=== PATIENT | male | born 1965 | race Caucasian/White ===

== ENCOUNTER 2024-09-17 14:17 | Emergency (ER) | payer MEDICARE, MEDICAID, SELFPAY ==
--- NOTE | ~2024-09-17 | XR_ITS ---
EXAMINATION: XR CHEST CLINICAL INFORMATION: cough, fever COMPARISON: None available. TECHNIQUE: 2 views of the chest were obtained. FINDINGS: Cardiac and mediastinal and hilar contours are unremarkable. Lungs are clear and well aerated. XR/XR chest 2V IMPRESSION: No acute disease. Electronically signed by: Usman Flood MD 09/17/2024 03:41 PM EDT
--- NOTE | 2024-09-17 14:19 | ECG_ITS ---
Test Reason : CP Blood Pressure : */* mmHG Vent. Rate : 96 BPM Atrial Rate : 96 BPM P-R Int : 150 ms QRS Dur : 98 ms QT Int : 364 ms P-R-T Axes : 1 38 22 degrees QTcB Int : 459 ms Normal sinus rhythm Septal infarct , age undetermined Abnormal ECG When compared with ECG of 14-Aug-2005 22:36, Septal infarct is now Present Referred By: Generic ED Physician Electronically Signed By: ALFREDO JACOBS MD
--- NOTE | 2024-09-17 14:28 | ED.GENADULT ---
HPI - General Adult General Chief complaint: General Medical Stated complaint: chest pain Time Seen by Provider: 09/17/24 14:58 Source: patient Mode of arrival: ambulatory Limitations: no limitations History of Present Illness ED Provider: Dr. Gume Sanders HPI narrative: 58-year-old male with a history of depression, anxiety, insomnia who presents emergency department for evaluation of 2-3 weeks of constant cough which is worse in the last week. The patient states that his cough is productive of thick, yellow phlegm with no blood in the phlegm. Patient states that he has chest pain with coughing. He feels short of breath and has dyspnea on exertion. He states that his symptoms got worse so he came to the emergency department for evaluation. The patient had subjective fevers. He denied chills. He denied nausea, vomiting or diarrhea. He denied myalgias arthralgias. Patient has a greater than 45 pack-year history of smoking and he smokes 1/2-1 pack of cigarettes per day. Related Data Previous Rx's ?Medication ?Instructions ?Recorded albuterol sulfate 90 mcg/actuation 2 puff inhalation Q4-6H PRN 09/17/24 aerosol inhaler shortness of breath or wheezing #8.5 grams cefuroxime axetil 250 mg tablet 250 mg PO Q12H 5 days #10 tabs 09/17/24 doxycycline hyclate 100 mg capsule 100 mg PO BID 5 days #10 caps 09/17/24 Allergies Allergy/AdvReac Type Severity Reaction Status Date / Time carisoprodol [From [facility]] Allergy Unknown UNKNOWN Verified 09/17/24 14:32 Review of Systems Review of Systems: Yes all other systems are reviewed and are negative [facility] Past Medical History [facility] Narrative: Social history: Patient smokes 1/2-1 pack of cigarettes per day for 45 years. He occasionally drinks alcohol. He denies drug use. Social History Social History Alcohol intake: current Alcohol intake frequency: holidays/special occasions only Alcohol type: beer Smoked in Last 30 Days: Yes Use of substances other than those prescribed or required for medical reasons: Yes Substance Use Type: Marijuana Substance Use Frequency: Occasionally Advance Directives: No Advance Directives Information Provided: No Physical Exam ED Vital Signs: Vital Signs - 24 hr 09/17/24 14:29 09/17/24 14:54 06/12/25 15:55 Temperature 98.0 F 98.0 F Pulse Rate 101 H 101 H 77 Respiratory Rate 20 20 12 Blood Pressure 122/82 122/82 Pulse Oximetry 94 94 Oxygen Delivery Method Room Air Room Air BMI result Body Mass Index 32.0 Vital signs revealed an elevated heart rate of 101 otherwise unremarkable Exam: General: Awake, alert in no distress Head: Normocephalic, atraumatic EENT: PERRL, Lids normal, sclera normal, conjunctiva normal, nose normal , ears normal, throat without erythema or exudates Neck: Supple, no adenopathy Lung: breath sounds symmetric, diffuse rhonchi with wheezing at the end of expiration, no rales Chest: symmetric movement, nontender Heart: regular rate and rhythm, normal S1, S2 no murmurs or rubs Abdomen: soft, non-tender, nondistended, normal bowel sounds Back: no vertebral tenderness, no CVAT Extremities: no deformities, moves all extremities symmetrically Neuro: Awake, alert, oriented, normal speech, cranial nerves intact, moves all extremities symmetrically Psych: Pleasant, cooperative Course Course Course Narrative: RME, this is a rapid medical exam performed by Luis Eduardo Erazo please refer to primary provider for complete H&P- 58-year-old male presents for evaluation of cough, chest pain and subjective fevers. Plan for labs, viral swabs, chest x-ray. EKG was ordered on arrival. Medications Administered Discontinued Medications Generic Name Dose Route Start Last Admin Trade Name Freq PRN Reason Stop Dose Admin Cefuroxime Axetil 250 mg 09/17/24 15:22 09/17/24 15:49 Cefuroxime Axetil 250 Mg Tablet PO 09/17/24 15:23 250 mg ONCE ONE Administration Albuterol Sulfate 2.5 mg/ 0 mg 09/17/24 15:55 09/17/24 16:00 Albuterol/Ipratropium 3 ml INHALE 09/17/24 15:56 5 dose ONCE ONE Administration Doxycycline Monohydrate 100 mg 09/17/24 15:22 09/17/24 15:49 Doxycycline Monohydrate 100 Mg Capsule PO 09/17/24 15:23 100 mg ONCE ONE Administration Medical Decision Making Medical Decision Making MDM Narrative: 58-year-old male with a history of depression, anxiety, insomnia who presents emergency department for evaluation of 2-3 weeks of constant cough which is worse in the last week. The patient states that his cough is productive of thick, yellow phlegm with no blood in the phlegm. Patient states that he has chest pain with coughing. He feels short of breath and has dyspnea on exertion. He states that his symptoms got worse so he came to the emergency department for evaluation. The patient had subjective fevers. He denied chills. He denied nausea, vomiting or diarrhea. He denied myalgias arthralgias. Vital signs revealed elevated heart rate otherwise unremarkable. Lung exam revealed diffuse rhonchi with wheezing at the end of expiration otherwise unremarkable. Differential diagnosis: ?Includes but is not limited to pneumonia, bronchitis, viral syndrome, COVID-19, influenza, RSV Course: 15:31 My independent interpretation patient's laboratory evaluation is as follows: WBC elevated 13,700. CMP was normal. Troponin was below detectable limits. BNP was below detectable limits. COVID-19, RSV and influenza were negative. Patient was given albuterol 5 mg and ipratropium 0.5 mg nebulized treatment with some improvement of his shortness of breath in his cough. Chest x-ray revealed no evidence of congestive heart failure or pneumonia which is reassuring. Patient's presentation is consistent with bronchitis. The patient was started on cefuroxime 250 mg q.12 hours x5 days and doxycycline 100 mg q.12 hours x5 days. He is given his 1st dose of these medications here in the emergency department. Patient was advised to stop smoking cigarettes. He was given printed and verbal instructions and discharged home. Admission/Observation Consideration of admission/observation: Escalation of care including admission/observation considered (Yes) Lab Data MDM Lab Attestation statement: I reviewed the patient's lab results. 09/17/24 14:41 09/17/24 14:41 Labs: Lab Results 09/17/24 Range/Units 14:41 WBC 13.7 H (4.8-10.8) X10*3/uL RBC 4.54 L (4.60-5.80) X10*6/uL Hgb 14.1 (14.0-18.0) g/dl Hct 40.0 L (42.0-52.0) % MCV 88.1 (80.0-98.0) fL MCH 31.1 (27.0-33.0) pg MCHC 35.3 (31.0-36.0) g/dl RDW 14.6 (11.0-16.0) % Plt Count 248 (160-400) X10*3/uL MPV 9.1 L (9.4-12.4) fL Immature Gran % (Auto) 0.3 (0.0-0.4) % Neut % (Auto) 63.0 (45-73) % Lymph % (Auto) 26.3 (20-40) % Jones % (Auto) 7.0 (2-11) % Eos % (Auto) 2.8 (0-4) % Baso % (Auto) 0.6 (0-2) % Lymph # (Auto) 3.6 (1.2-4.9) X10*3/uL Jones # (Auto) 1.0 (0.1-1.2) X10*3/uL Eos # (Auto) 0.4 (0.0-0.4) X10*3/uL Baso # (Auto) 0.1 (0.0-0.2) X10*3/uL Abs Immat Gran (auto) 0.04 H (0.00-0.03) X10*3/uL Absolute Neuts (auto) 8.7 H (2.0-8.3) x10*3/uL Absolute Nucleated RBC 0.000 (0.0-0.012) X10*3/uL Nucleated RBC % (auto) 0.0 (0.0-0.2) /100WBC Sodium 142 (135-145) mmol/L Potassium 3.8 (3.3-5.1) mmol/L Chloride 108 (96-108) mmol/L Carbon Dioxide 28 (22-29) mmol/L Anion Gap 10 L (12-20) BUN 11 (9-16) mg/dL Creatinine 0.93 (0.5-1.4) mg/dL Estim Creat Clear Calc 106.7 Estimated GFR > 60 Random Glucose 104 (60-115) mg/dL Calcium 10.2 (8.4-10.2) mg/dL Magnesium 2.0 (1.6-2.6) mg/dL Total Bilirubin 0.4 (0.0-1.0) mg/dL AST 26 (5-37) U/L ALT 25 (0-40) U/L Alkaline Phosphatase 109 (39-117) U/L Troponin I High Sens < 2.7 (<3.5-35.0) ng/L B-Natriuretic Peptide < 10 (<100) pg/mL Total Protein 6.8 (6.5-8.0) g/dL Albumin 4.4 (3.5-5.0) g/dL Influenza Type A (PCR) NEGATIVE (Negative) Influenza Type B (PCR) NEGATIVE (Negative) RSV RNA Qual (PCR) NEGATIVE (Negative) SARS-CoV-2 RNA (RT-PCR) NEGATIVE (Negative) Independent Interpretation I performed an independent interpretation of an: EKG Interpretation: My independent interpretation patient's 12 EKG done on 09/17/2024 at 14:19 hours is as follows: Normal sinus rhythm with a rate of 96, normal NM interval, QRS duration QTC interval, no ST segment elevation, no ST segment depression, no significant T-wave abnormalities, RR prime in V1 through V2. Compared to an EKG dated 08/14/2005, RR prime in V1 and V2 are new. My independent interpretation of the patient's chest x-ray is as follows: No acute disease Radiology Impression Discussion of test interpretation with radiology: I have reviewed the radiologist's reading. Radiologist Impression: XR chest 2V IMPRESSION: No acute disease. Electronically signed by: Usman Flood MD 09/17/2024 03:41 PM EDT RP Independent Historian Clinical information obtained from an independent historian. History obtained from or confirmed by: Spouse Chronic Conditions Patient?s care impacted by: Other (Depression, anxiety, tobacco use disorder) Discharge Plan Discharge Clinical Impression: Bronchitis with bronchospasm Patient Disposition: Home, Self-Care Instructions: Acute Bronchitis (ED) Additional Instructions: Your blood work revealed an elevated white blood cell count otherwise unremarkable. Your chest x-ray revealed no evidence of pneumonia. Your symptoms are consistent with an infection of your breathing tubes (bronchitis). I am starting you on 2 antibiotics Take cefuroxime 250 mg, 1 pill every 12 hours for 5 days. Take doxycycline 100 mg, 1 pill every 12 hours for 5 days. Use the albuterol inhaler 2 puffs every 4 hours for the next 3-4 days, this should improve your shortness of breath and hopefully help with your cough as well. Take Tylenol 500 mg pills, 2 pills every 6 hours as needed for pain or fever. You need to stop smoking cigarettes. Follow-up with your doctor in 2 days. Please return to the emergency department if your symptoms get worse or if you develop any symptoms that are concerning to you. Prescriptions: New doxycycline hyclate 100 mg capsule 100 mg PO BID 5 Days Qty: 10 0RF albuterol sulfate 90 mcg/actuation HFA aerosol inhaler 2 puff inhalation Q4-6H PRN (Reason: shortness of breath or wheezing) Qty: 8.5 0RF cefuroxime axetil 250 mg tablet 250 mg PO Q12H 5 Days Qty: 10 0RF Print Language: Norwegian
[2024-09-17 14:29] VITALS: BP 122/82; PULSE 101; RESP 20; TEMP 36.7; O2SAT 94; BMI 32.0
[2024-09-17 14:45] LABS: MANUAL DIFF FLAG NO
[2024-09-17 14:48] LABS: Basophils Absolute Auto 0.1 X10*3/uL (0.0-0.2); Basophils Percent Auto 0.6 % (0-2); Eosinophils Absolute Auto 0.4 X10*3/uL (0.0-0.4); Eosinophils Percent Auto 2.8 % (0-4); Hemoglobin 14.1 g/dl (14.0-18.0); Imm Gran Abs Auto 0.04 X10*3/uL (0.00-0.03); Imm Gran Pct Auto 0.3 % (0.0-0.4); Lymphocytes Absolute Auto 3.6 X10*3/uL (1.2-4.9); Lymphocytes Percent Auto 26.3 % (20-40); Mean Corpuscular HGB Conc 35.3 g/dl (31.0-36.0); Mean Corpuscular Hemoglobin 31.1 pg (27.0-33.0); Mean Corpuscular Volume 88.1 fL (80.0-98.0); Mean Platelet Volume 9.1 fL (9.4-12.4); Neutrophils Absolute Auto 8.7 x10*3/uL (2.0-8.3); Platelet Count 248 X10*3/uL (160-400); Red Blood Count 4.54 X10*6/uL (4.60-5.80); Red Cell Distribution Width 14.6 % (11.0-16.0); White Blood Count 13.7 X10*3/uL (4.8-10.8)
[2024-09-17 14:54] VITALS: BP 122/82; PULSE 101; RESP 20; TEMP 36.7; O2SAT 94
--- NOTE | 2024-09-17 14:59 | PC.NURSE ---
Patient A&O x 3. Patient presents to ED c/o SOB. Patient states I havent been feeling well and coughing for the last week, the last three days thick yellow sputum has been produced . O2 95% RA Patient tachypnic 22 RR all other VSS and up to date Patient c/o back pain rated 4/10 non radiating. Patient c/o of subjective fevers over the last few days. Patient has been using OTC medications at home with no relief. Plan of care on going
[2024-09-17 15:01] LABS: Alanine Aminotransferase 25 U/L (0-40); Albumin Level 4.4 g/dL (3.5-5.0); Alkaline Phosphatase 109 U/L (39-117); Anion Gap 10 (12-20); Aspartate Amino Transferase 26 U/L (5-37); Bilirubin Total 0.4 mg/dL (0.0-1.0); Blood Urea Nitrogen 11 mg/dL (9-16); Calcium 10.2 mg/dL (8.4-10.2); Carbon Dioxide 28 mmol/L (22-29); Chloride 108 mmol/L (96-108); Creatinine Clr Calc Pharmacy 106.7; Estimated Glomerular Filt Rate > 60; Glucose Random 104 mg/dL (60-115); Potassium 3.8 mmol/L (3.3-5.1); Sodium 142 mmol/L (135-145); Total Protein 6.8 g/dL (6.5-8.0)
[2024-09-17 15:07] LABS: B Type Natriuretic Peptide < 10 pg/mL (<100)
[2024-09-17 15:09] LABS: Troponin-I High Sensitivity < 2.7 ng/L (<3.5-35.0)
[2024-09-17 15:23] LABS: Influenza A PCR NEGATIVE (Negative); Influenza B PCR NEGATIVE (Negative); Resp Syncy Virus RNA Qual PCR NEGATIVE (Negative); SARS COV2 PCR INHOUSE NEGATIVE (Negative)
[2024-09-17] MEDS: Doxycycline Monohydrate 100 MG CAPSULE PO (15:49)
[2024-09-17] MEDS: cefuroxime axetiL 250 MG TABLET PO (15:49)
--- NOTE | 2024-09-17 15:50 | PC.NURSE ---
CXR performed, results unremarkable
[2024-09-17 15:55] VITALS: PULSE 77; RESP 12; O2SAT 95
[2024-09-17] MEDS: Albuterol Sulfate 2.5 MG, Albuterol/Iprat 2.5/0.5MG 3 ML 3 ML INHALE (16:00)
--- OUTSIDE RECORDS SUMMARY | 2024-09-17 18:02 | XMS_ITS | Clinical Summary ---
Author Organization [employer] Address [address] [place] [address] [address] [place] [address] Care Team Providers Care Operating Room Scheduler Name Role Phone Unavailable Primary Care Provider Unavailabl e Social History Tobacco Use Types Packs/Day Years Used Date Smoking Tobacco: Never Assessed Sex and Gender Information Value Date Recorded Sex Assigned at Male 02/05/2022 10:15 AM EDT Legal Sex Male 10:15 AM EDT Gender Identity Male 02/05/2022 10:15 AM EDT Sexual Orientation Choose not to disclose 2021 10:15 AM EDT Plan of Treatment Health Maintenance Due Date Last Done Comments CT Colonography 1963 Colonoscopy 1963 Colorectal Cancer Screening 1963 Depression Screening 1963 FIT DNA/Cologuard 1963 FIT 1963 FOBT 1963 Lipid Panel 1963 Sigmoidoscopy 1963 Disability Screening 1963 Alcohol/Substance Use Screening 1975 Tobacco Screening 1975 IPV Vaccines (2 of 3 - Adult catch-up series) 10/02/2013 09/04/2013 Zoster Vaccines (1 of 2) 11/08/2013 Pneumococcal Vaccine: 50+ Years (2 of 2 - PCV) 04/11/2019 04/11/2018, 05/31/2017, 08/07/2011, Additional history exists DTaP/Tdap/Td Vaccines (5 - Td or Tdap) 09/05/2023 09/04/2013, 06/05/2013, 08/07/2011, Additional history exists COVID-19 Vaccine (3 - season) 2023 08/30/2020, 08/03/2020 Influenza Vaccine (Season Ended) 2024 02/02/2022, 04/19/2021, 01/22/2019, Additional history exists RSV Patients and Patients Aged 60 years or older (1 - 1-dose 75+ series) 11/08/2038 HIB Vaccines Aged Out 09/04/2013 No longer eligi ble based on patient's age to complete this topic Meningococcal Vaccine Aged Out 09/04/2013, 014 No longer eligible based on patient's age to complete this topic HPV Vaccines Aged Out No longer eligi ble based on patient's age to complete this topic Hepatitis A Vaccines Aged Out No long er eligible based on patient's age to complete this topic Hepatitis B Vaccines Aged Out No long er eligible based on patient's age to complete this topic Meningococcal B Vaccine Aged Out No l onger eligible based on patient's age to complete this topic RSV under 20 months Aged Out No longe r eligible based on patient's age to complete this topic Rotavirus Vaccines Aged Out No longer eligible based on patient's age to complete this topic
[2024-09-17 18:31] VITALS: BP 131/85; PULSE 73; RESP 11; TEMP 36.8; O2SAT 93
== END 2024-09-17 18:44 | disposition home or self-care (01) ==
PROVIDERS: Physician Assistant; Emergency Provider Emergency Medicine Emergency Medical Services
DX: J40 Bronchitis, not specified as acute or chronic (principal); R07.89 Other chest pain; G47.00 Insomnia, unspecified; F33.1 Major depressive disorder, recurrent, moderate; R05.9 Cough, unspecified; R06.02 Shortness of breath; Z03.818 Encounter for observation for suspected exposure to other biological agents ruled out; Z87.891 Personal history of nicotine dependence
CPT/HCPCS: 0241U; 36415; 71046; 80053; 83735; 83880; 84484; 85025; 93005; 94640; 99284; 99285

== ENCOUNTER → 2024-09-17 14:19 | Outpatient (BNV) | payer MEDICARE, MEDICAID, SELFPAY | PROVIDERS: Emergency Provider Emergency Medicine Emergency Medical Services; Visit Provider Internal Medicine Cardiovascular Disease | DX: R94.31 Abnormal electrocardiogram [ECG] [EKG] (principal); R07.9 Chest pain, unspecified | CPT/HCPCS: 93010 ==

== ENCOUNTER → 2024-09-17 14:29 | Outpatient (BNV) | payer MEDICARE, MEDICAID, SELFPAY | PROVIDERS: Emergency Provider Emergency Medicine Emergency Medical Services; Visit Provider Radiology Diagnostic Radiology | DX: R05.9 Cough, unspecified (principal); R50.9 Fever, unspecified | CPT/HCPCS: 71046 ==

== ENCOUNTER 2024-10-26 13:17 | Emergency (ER) | payer MEDICARE, MEDICAID, SELFPAY ==
--- NOTE | ~2024-10-26 | XR_ITS ---
EXAMINATION: XR CHEST CLINICAL INFORMATION: chest pain COMPARISON: 09/17/2024 TECHNIQUE: 2 views of the chest were obtained. FINDINGS: The cardiac, hilar, and mediastinal contours are normal. The lungs are mildly hyperaerated, however clear bilaterally. There is no pneumothorax or pleural effusion. There is no focal osseous or soft tissue abnormality. XR/XR chest 2V IMPRESSION: Findings suggesting COPD. No active superimposed disease. Electronically signed by: Erick Austin MD 10/26/2024 01:55 PM EDT
--- NOTE | 2024-10-26 13:19 | ECG_ITS ---
Test Reason : cp Blood Pressure : */* mmHG Vent. Rate : 79 BPM Atrial Rate : 79 BPM P-R Int : 164 ms QRS Dur : 98 ms QT Int : 408 ms P-R-T Axes : -10 39 26 degrees QTcB Int : 467 ms Normal sinus rhythm Cannot rule out Anterior infarct (cited on or before 17-Sep-2024) Abnormal ECG When compared with ECG of 17-Sep-2024 14:19, Questionable change in initial forces of Septal leads Referred By: January Llamas Electronically Signed By: Deacon Perez
--- NOTE | 2024-10-26 13:31 | ED_ITS ---
HPI - Chest Pain General Chief Complaint: Chest Pain Stated Complaint: CP Time Seen by Provider: 10/26/24 14:33 Source: patient Mode of arrival: ambulatory Limitations: no limitations History of Present Illness HPI narrative: This is a 58 years old the patient with history of anxiety major depression prior psychiatric hospitalization with overdose presented to the emergency department with a chief complaint of chest pain he states that he has been under lot of stress this afternoon experienced chest pain radiated to the jaw. Denies exertional symptoms. He has no prior history of coronary artery disease he does smoke a no diabetes or high blood pressure MD complaint: chest pain Onset (ago): hour(s) (2) Timing of current episode: episodic Onset: during rest Pain location: substernal Pain radiation: jaw/teeth Severity: mild Relieving factors: nothing Exacerbating factors: nothing Context: recent illness Risk Factors Coronary artery disease risk factors: smoking history Thoracic aortic dissection risk factors: none Related Data Previous Rx's ?Medication ?Instructions ?Recorded albuterol sulfate 90 mcg/actuation 2 puff inhalation Q 4-6H PRN 09/17/24 aerosol inhaler shortness of breath or wheez ing #8.5 grams cefuroxime axetil 250 mg tablet 250 mg PO Q12H 5 days #10 tabs 09/17/24 doxycycline hyclate 100 mg capsule 100 mg PO BID 5 day s #10 caps 09/17/24 Allergies Allergy/AdvReac Type Severity Reaction Status Date / Time carisoprodol (From [facility]) Allergy Unknown UNKNOWN Verified 10/26/24 13:33 Review of Systems 2 Cardiovascular: Cardiovascular: Reports no additional cardiovascular complaints and Denies dyspnea Respiratory: Respiratory: Denies cough and Denies dyspnea Psychiatric: Psychiatric: Reports anxiety PMFSH Social History Social History Alcohol intake: current Alcohol intake frequency: holidays/special occasions only Alcohol type: beer Substance Use Type: Marijuana Advance Directives: No Advance Directives Information Provided: Yes Physical Exam 2 Exam: Exam: No acute distress Vital Signs: Vital Signs: Last Vital Signs Temp 98.1 F 10/26/24 15:10 Pulse 62 10/26/24 15:10 Resp 18 10/26/24 15:10 BP 143/97 H 10/26/24 15:10 Pulse Ox 96 10/26/24 15:10 O2 Del Method Room Air 10/26/24 15:10 BMI result Body Mass Index 33.9 Const: General: cooperative and comfortable Nutritional Appearance: average body habitus Orientation/consciousness: patient oriented x3 Limitations: n o limitations HEENT: Head: Yes normal to inspection General nose exam: Normal external nose present Face and sinus: Yes normal facial exam Neck: Neck: Yes normal visual inspection Chest: Chest palpation & inspection: normal inspection of the chest Resp: Effort & Inspection: normal respiratory effort Auscultation: clear to auscultation bilaterally Cardio: Jugular venous distension: no JVD Rate: regular rate Rhythm: r egular rhythm GI: Inspection: Yes normal to inspection Palpation (GI): Soft to palpation Skin: General skin exam: no rashes or lesions noted and elasticity normal Neuro: General: patient oriented x3 Course Course Course Narrative: This is an RME performed by Fareed Llamas CNP: Additional HPI, ROS, PE not included below will be deferred to primary provider. Patient is a 58-year-old male pmhx of depression, anxiety, agoraphobia, tobacco use who presents emergency department for evaluation. Reports proximally abdomen prior to arrival ?I thought he had indigestion? he took 4 Tums without relief. But then began having midsternal chest pain, jaw pain, left arm pain, SOB like i can't catch my breath . States that pain has improved since its onset but still present. Endorses increased stressors recently. Denies cough, dizziness, vision changes, headache, abdominal pain. Plan: Serum labs, ECG, CXR, viral serologies Reevaluation(s) Reevaluation #1: Patient is chest pain-free refused 2nd troponin he is signing ascending advice Time: 16:02 Medical Decision Making Medical Decision Making [facility] Narrative: Patient presented with chest pain we will obtain EKG high sensitive troponin chest x-ray 16:00 patient is refusing 2nd troponin sign against medical advice understands the risks Differential Diagnosis Differential Diagnoses: The differential diagnosis associated with the presentation includes ACS/anxiety/musculoskeletal pain Admission/Observation Consideration of admission/observation: Escalation of care including admission/observation considered Lab Data [facility] Lab Attestation statement: I reviewed the patient's lab results. 10/26/24 13:31 10/26/24 13:31 Labs: Lab Results 10/26/24 Range/Units 13:31 WBC 11.5 H (4.8-10.8) X10*3/uL RBC 4.49 L (4.60-5.80) X10*6/uL Hgb 14.1 (14.0-18.0) g/dl Hct 40.2 L (42.0-52.0) % MCV 89.5 (80.0-98.0) fL MCH 31.4 (27.0-33.0) pg MCHC 35.1 (31.0-36.0) g/dl RDW 15.1 (11.0-16.0) % Plt Count 288 (160-400) X10*3/uL MPV 9.2 L (9.4-12.4) fL Immature Gran % (Auto) 0.3 (0.0-0.4) % Neut % (Auto) 55.0 (45-73) % Lymph % (Auto) 34.7 (20-40) % [place] % (Auto) 7.6 (2-11) % Eos % (Auto) 1.4 (0-4) % Baso % (Auto) 1.0 (0-2) % Lymph # (Auto) 4.0 (1.2-4.9) X10*3/uL [place] # (Auto) 0.9 (0.1-1.2) X10*3/uL Eos # (Auto) 0.2 (0.0-0.4) X10*3/uL Baso # (Auto) 0.1 (0.0-0.2) X10*3/uL Abs Immat Gran (auto) 0.04 H (0.00-0.03) X10*3/uL Absolute Neuts (auto) 6.3 (2.0-8.3) x10*3/uL Absolute Nucleated RBC 0.000 (0.0-0.012) X10*3/uL Nucleated RBC % (auto) 0.0 (0.0-0.2) /100WBC Sodium 143 (135-145) mmol/L Potassium 4.1 (3.3-5.1) mmol/L Chloride 110 H (96-108) mmol/L Carbon Dioxide 27 (22-29) mmol/L Anion Gap 10 L (12-20) BUN 11 (9-16) mg/dL Creatinine 0.87 (0.5-1.4) mg/dL Estim Creat Clear Calc 117.3 Estimated GFR > 60 Random Glucose 102 (60-115) mg/dL Calcium 9.9 (8.4-10.2) mg/dL Magnesium 2.0 (1.6-2.6) mg/dL Total Bilirubin 0.4 (0.0-1.0) mg/dL AST 28 (5-37) U/L ALT 29 (0-40) U/L Alkaline Phosphatase 89 (39-117) U/L Troponin I High Sens < 2.7 (<3.5-35.0) ng/L B-Natriuretic Peptide 11 (<100) pg/mL Total Protein 7.4 (6.5-8.0) g/dL Albumin 4.5 (3.5-5.0) g/dL Lipase 36 (8-78) U/L Influenza Type A (PCR) NEGATIVE (Negative) Influenza Type B (PCR) NEGATIVE (Negative) RSV RNA Qual (PCR) NEGATIVE (Negative) SARS-CoV-2 RNA (RT-PCR) NEGATIVE (Negative) Independent Interpretation I performed an independent interpretation of an: EKG Interpretation: EKG was reviewed interpreted by me as sinus rhythm [address]-T changes Discharge Plan Discharge Clinical Impression: Chest pain Qualifiers: Chest pain type: unspecified Qualified Code(s): R07.9 - Chest pain, unspecified Patient Disposition: Left Against Medical Advice Additional Instructions: You . signed against medical advice you welcome to come back to the emergency room any time if you worse, please follow-up with your primary care physician Prescriptions: No Action doxycycline hyclate 100 mg capsule 100 mg PO BID 5 Days Qty: 10 0RF albuterol sulfate 90 mcg/actuation HFA aerosol inhaler 2 puff inhalation Q4-6H PRN (Reason: shortness of breath or wheezing) Qty: 8.5 0RF cefuroxime axetil 250 mg tablet 250 mg PO Q12H 5 Days Qty: 10 0RF Print Language: Kazakh
[2024-10-26 13:32] VITALS: BP 157/100; PULSE 78; RESP 18; TEMP 36.6; O2SAT 96; BMI 33.9
[2024-10-26 13:38] LABS: MANUAL DIFF FLAG NO
[2024-10-26 13:41] LABS: Hematocrit 40.2 % (42.0-52.0); Hemoglobin 14.1 g/dl (14.0-18.0); Imm Gran Abs Auto 0.04 X10*3/uL (0.00-0.03); Imm Gran Pct Auto 0.3 % (0.0-0.4); Lymphocytes Absolute Auto 4.0 X10*3/uL (1.2-4.9); Mean Corpuscular HGB Conc 35.1 g/dl (31.0-36.0); Mean Corpuscular Hemoglobin 31.4 pg (27.0-33.0); Mean Corpuscular Volume 89.5 fL (80.0-98.0); NRBC Abs Auto 0.000 X10*3/uL (0.0-0.012); NRBC Pct Auto 0.0 /100WBC (0.0-0.2); Platelet Count 288 X10*3/uL (160-400); Red Blood Count 4.49 X10*6/uL (4.60-5.80); White Blood Count 11.5 X10*3/uL (4.8-10.8)
[2024-10-26 13:57] LABS: Alanine Aminotransferase 29 U/L (0-40); Albumin Level 4.5 g/dL (3.5-5.0); Alkaline Phosphatase 89 U/L (39-117); Anion Gap 10 (12-20); Aspartate Amino Transferase 28 U/L (5-37); Blood Urea Nitrogen 11 mg/dL (9-16); Calcium 9.9 mg/dL (8.4-10.2); Carbon Dioxide 27 mmol/L (22-29); Chloride 110 mmol/L (96-108); Creatinine Clr Calc Pharmacy 117.3; Estimated Glomerular Filt Rate > 60; Lipase 36 U/L (8-78); Magnesium 2.0 mg/dL (1.6-2.6); Potassium 4.1 mmol/L (3.3-5.1); Sodium 143 mmol/L (135-145); Total Protein 7.4 g/dL (6.5-8.0)
[2024-10-26 14:02] LABS: B Type Natriuretic Peptide 11 pg/mL (<100)
[2024-10-26 14:10] LABS: Troponin-I High Sensitivity < 2.7 ng/L (<3.5-35.0)
[2024-10-26 14:31] LABS: Resp Syncy Virus RNA Qual PCR NEGATIVE (Negative); SARS COV2 PCR INHOUSE NEGATIVE (Negative)
--- NOTE | 2024-10-26 14:42 | ED.CHESTPAIN ---
HPI - Chest Pain General Chief Complaint: Chest Pain Stated Complaint: CP Time Seen by Provider: 10/26/24 14:33 Related Data Previous Rx's ?Medication ?Instructions ?Recorded albuterol sulfate 90 mcg/actuation 2 puff inhalation Q4-6H PRN 09/17/24 aerosol inhaler shortness of breath or wheezing #8.5 grams cefuroxime axetil 250 mg tablet 250 mg PO Q12H 5 days #10 tabs 09/17/24 doxycycline hyclate 100 mg capsule 100 mg PO BID 5 days #10 caps 09/17/24 Allergies Allergy/AdvReac Type Severity Reaction Status Date / Time carisoprodol (From [employer]) Allergy Unknown UNKNOWN Verified 10/26/24 13:33 [facility] Social History Social History Alcohol intake: current Alcohol intake frequency: holidays/special occasions only Alcohol type: beer Substance Use Type: Marijuana Advance Directives: No Advance Directives Information Provided: Yes Physical Exam Vital Signs: Vital Signs: Last Vital Signs Temp 98 F 10/26/24 13:32 Pulse 78 10/26/24 13:32 Resp 18 10/26/24 13:32 BP 157/100 H 10/26/24 13:32 Pulse Ox 96 10/26/24 13:32 O2 Del Method Room Air 10/26/24 13:32 BMI result Body Mass Index 33.9 Medical Decision Making Lab Data 10/26/24 13:31 10/26/24 13:31 Labs: Lab Results 10/26/24 Range/Units 13:31 WBC 11.5 H (4.8-10.8) X10*3/uL RBC 4.49 L (4.60-5.80) X10*6/uL Hgb 14.1 (14.0-18.0) g/dl Hct 40.2 L (42.0-52.0) % MCV 89.5 (80.0-98.0) fL MCH 31.4 (27.0-33.0) pg MCHC 35.1 (31.0-36.0) g/dl RDW 15.1 (11.0-16.0) % Plt Count 288 (160-400) X10*3/uL MPV 9.2 L (9.4-12.4) fL Immature Gran % (Auto) 0.3 (0.0-0.4) % Neut % (Auto) 55.0 (45-73) % Lymph % (Auto) 34.7 (20-40) % [place] % (Auto) 7.6 (2-11) % Eos % (Auto) 1.4 (0-4) % Baso % (Auto) 1.0 (0-2) % Lymph # (Auto) 4.0 (1.2-4.9) X10*3/uL [place] # (Auto) 0.9 (0.1-1.2) X10*3/uL Eos # (Auto) 0.2 (0.0-0.4) X10*3/uL Baso # (Auto) 0.1 (0.0-0.2) X10*3/uL Abs Immat Gran (auto) 0.04 H (0.00-0.03) X10*3/uL Absolute Neuts (auto) 6.3 (2.0-8.3) x10*3/uL Absolute Nucleated RBC 0.000 (0.0-0.012) X10*3/uL Nucleated RBC % (auto) 0.0 (0.0-0.2) /100WBC Sodium 143 (135-145) mmol/L Potassium 4.1 (3.3-5.1) mmol/L Chloride 110 H (96-108) mmol/L Carbon Dioxide 27 (22-29) mmol/L Anion Gap 10 L (12-20) BUN 11 (9-16) mg/dL Creatinine 0.87 (0.5-1.4) mg/dL Estim Creat Clear Calc 117.3 Estimated GFR > 60 Random Glucose 102 (60-115) mg/dL Calcium 9.9 (8.4-10.2) mg/dL Magnesium 2.0 (1.6-2.6) mg/dL Total Bilirubin 0.4 (0.0-1.0) mg/dL AST 28 (5-37) U/L ALT 29 (0-40) U/L Alkaline Phosphatase 89 (39-117) U/L Troponin I High Sens < 2.7 (<3.5-35.0) ng/L B-Natriuretic Peptide 11 (<100) pg/mL Total Protein 7.4 (6.5-8.0) g/dL Albumin 4.5 (3.5-5.0) g/dL Lipase 36 (8-78) U/L Influenza Type A (PCR) NEGATIVE (Negative) Influenza Type B (PCR) NEGATIVE (Negative) RSV RNA Qual (PCR) NEGATIVE (Negative) SARS-CoV-2 RNA (RT-PCR) NEGATIVE (Negative) Discharge Plan Discharge Prescriptions: No Action doxycycline hyclate 100 mg capsule 100 mg PO BID 5 Days Qty: 10 0RF albuterol sulfate 90 mcg/actuation HFA aerosol inhaler 2 puff inhalation Q4-6H PRN (Reason: shortness of breath or wheezing) Qty: 8.5 0RF cefuroxime axetil 250 mg tablet 250 mg PO Q12H 5 Days Qty: 10 0RF Print Language: Portuguese
--- NOTE | 2024-10-26 14:47 | ED.CHESTPAIN ---
HPI - Chest Pain General Chief Complaint: Chest Pain Stated Complaint: CP Time Seen by Provider: 10/26/24 14:33 Related Data Previous Rx's ?Medication ?Instructions ?Recorded albuterol sulfate 90 mcg/actuation 2 puff inhalation Q4-6H PRN 09/17/24 aerosol inhaler shortness of breath or wheezing #8.5 grams cefuroxime axetil 250 mg tablet 250 mg PO Q12H 5 days #10 tabs 09/17/24 doxycycline hyclate 100 mg capsule 100 mg PO BID 5 days #10 caps 09/17/24 Allergies Allergy/AdvReac Type Severity Reaction Status Date / Time carisoprodol (From [employer] Experience) Allergy Unknown UNKNOWN Verified 10/26/24 13:33 [facility] Social History Social History Alcohol intake: current Alcohol intake frequency: holidays/special occasions only Alcohol type: beer Substance Use Type: Marijuana Advance Directives: No Advance Directives Information Provided: Yes Physical Exam Vital Signs: Vital Signs: Last Vital Signs Temp 98.1 F 10/26/24 15:10 Pulse 62 10/26/24 15:10 Resp 18 10/26/24 15:10 BP 143/97 H 10/26/24 15:10 Pulse Ox 96 10/26/24 15:10 O2 Del Method Room Air 10/26/24 15:10 BMI result Body Mass Index 33.9 Course Reevaluation(s) Reevaluation #1: Chest pain-free now initial troponin negative, patient is refusing the 2nd troponin, he has sign against medical advice Time: 16:00 Medical Decision Making Medical Decision Making [facility] Narrative: Patient presented with chest pain Lab Data 10/26/24 13:31 10/26/24 13:31 Labs: Lab Results 10/26/24 Range/Units 13:31 WBC 11.5 H (4.8-10.8) X10*3/uL RBC 4.49 L (4.60-5.80) X10*6/uL Hgb 14.1 (14.0-18.0) g/dl Hct 40.2 L (42.0-52.0) % MCV 89.5 (80.0-98.0) fL MCH 31.4 (27.0-33.0) pg MCHC 35.1 (31.0-36.0) g/dl RDW 15.1 (11.0-16.0) % Plt Count 288 (160-400) X10*3/uL MPV 9.2 L (9.4-12.4) fL Immature Gran % (Auto) 0.3 (0.0-0.4) % Neut % (Auto) 55.0 (45-73) % Lymph % (Auto) 34.7 (20-40) % [place] % (Auto) 7.6 (2-11) % Eos % (Auto) 1.4 (0-4) % Baso % (Auto) 1.0 (0-2) % Lymph # (Auto) 4.0 (1.2-4.9) X10*3/uL [place] # (Auto) 0.9 (0.1-1.2) X10*3/uL Eos # (Auto) 0.2 (0.0-0.4) X10*3/uL Baso # (Auto) 0.1 (0.0-0.2) X10*3/uL Abs Immat Gran (auto) 0.04 H (0.00-0.03) X10*3/uL Absolute Neuts (auto) 6.3 (2.0-8.3) x10*3/uL Absolute Nucleated RBC 0.000 (0.0-0.012) X10*3/uL Nucleated RBC % (auto) 0.0 (0.0-0.2) /100WBC Sodium 143 (135-145) mmol/L Potassium 4.1 (3.3-5.1) mmol/L Chloride 110 H (96-108) mmol/L Carbon Dioxide 27 (22-29) mmol/L Anion Gap 10 L (12-20) BUN 11 (9-16) mg/dL Creatinine 0.87 (0.5-1.4) mg/dL Estim Creat Clear Calc 117.3 Estimated GFR > 60 Random Glucose 102 (60-115) mg/dL Calcium 9.9 (8.4-10.2) mg/dL Magnesium 2.0 (1.6-2.6) mg/dL Total Bilirubin 0.4 (0.0-1.0) mg/dL AST 28 (5-37) U/L ALT 29 (0-40) U/L Alkaline Phosphatase 89 (39-117) U/L Troponin I High Sens < 2.7 (<3.5-35.0) ng/L B-Natriuretic Peptide 11 (<100) pg/mL Total Protein 7.4 (6.5-8.0) g/dL Albumin 4.5 (3.5-5.0) g/dL Lipase 36 (8-78) U/L Influenza Type A (PCR) NEGATIVE (Negative) Influenza Type B (PCR) NEGATIVE (Negative) RSV RNA Qual (PCR) NEGATIVE (Negative) SARS-CoV-2 RNA (RT-PCR) NEGATIVE (Negative) Discharge Plan Discharge Clinical Impression: Chest pain Qualifiers: Chest pain type: unspecified Qualified Code(s): R07.9 - Chest pain, unspecified Patient Disposition: Left Against Medical Advice Additional Instructions: You . signed against medical advice you welcome to come back to the emergency room any time if you worse, please follow-up with your primary care physician Prescriptions: No Action doxycycline hyclate 100 mg capsule 100 mg PO BID 5 Days Qty: 10 0RF albuterol sulfate 90 mcg/actuation HFA aerosol inhaler 2 puff inhalation Q4-6H PRN (Reason: shortness of breath or wheezing) Qty: 8.5 0RF cefuroxime axetil 250 mg tablet 250 mg PO Q12H 5 Days Qty: 10 0RF Print Language: Maltese
[2024-10-26 15:10] VITALS: BP 143/97; PULSE 62; PULSE 64; RESP 18; TEMP 36.7; O2SAT 96
--- OUTSIDE RECORDS SUMMARY | 2024-10-26 15:21 | XMS_ITS | Clinical Summary ---
Author Organization [employer] Address [address] [place] [address] [address] [place] [address] Care Team Providers Care Stitcher Standard Machine Name Role Phone Unavailable Primary Care Provider [...] - season) 2023 08/30/2020, 08/03/2020 Influenza Vaccine (#1) 2024 , 04/19/2021, 01/22/2019, Additional history exists RSV Patients [...]
--- OUTSIDE RECORDS SUMMARY | 2024-10-26 15:21 | XMS_ITS | Clinical Summary ---
Author Organization [facility] Address [address] [facility] [address] [place] [address] Phone Care Team Providers Care Extension Service Agent Name Role Phone Oral Hernández MD Unavailable [phone] Montrell Aguilar MD Primary Care Provider + Allergies Active Allergy Reactions Criticality Noted Date Comments Penicillins 09/20/2018 As a child rash Carisoprodol Other (See Comments) 06/08/2017 Pt reports his tongue felt fuzzy nd turned black (childhood) Medications clonazePAM (KLONOPIN) 2 MG tabletIndicatio ns:panic disorder Take 2 mg by mouth 3 (three) times a day as needed. Indications: Panic Disorder Active risperiDONE (RISPERDAL) 2 MG tabletIndicatio ns:depression associated with bipolar disorder Take 2 mg by mouth daily. Indications: bipolar depression Active lamoTRIgine (LAMICTAL XR) 200 mg [id number] :depression associated with bipolar disorder 200 mg daily. Indications: bipolar depression Active PARoxetine (PAXIL) 30 MG tabletIndicatio ns:depression associated with bipolar disorder Take 30 mg by mouth every morning. Indications: bipolar depression Active albuterol (VENTOLIN HFA) 90 mcg/actuation inhaler Inhale 2 puffs into the lungs as needed. 7 Active fluticasone propionate (FLONASE) 50 mcg/actuation nasal spray 100 mcg by Nasal route continuous prn. 9 Active ibuprofen (ADVIL,MOTRIN) 600 MG tablet Take 600 mg by mouth every 6 (six) hours as needed. 9 Active risperiDONE (RISPERDAL) 1 MG tablet Take 1 mg by mouth 2 (two) times a day. Active fluticasone propion-salmete roL (AIRDUO RESPICLICK) 113-14 mcg/actuation inhaler Inhale 1 puff into the lungs 2 (two) times a day. Active brexpiprazole (REXULTI) 2 mg tablet Take 2 mg by mouth daily. Active nicotine (NICODERM CQ) 21 mg/24 hr APPLY TOPICALLY EVERY DAY 28 patch 1 0 Active Active Problems Problem Noted Date Diagnosed Date Chronic left-sided low back pain without sciatic a 08/07/2019 Lumbosacral spondylosis without myelopathy 08/06 Bilateral buttock pain 04/24/2019 Sacroiliitis, not elsewhere classified 0 Depression 06/08/2017 Immunizations Immunization Administration Dates Next Due [id number] 09/04/2013 Influenza Trivalent w/ Preservative IM 1 04/08/2015,01/12/2014,03/10/2010,01/03,02/02/2008,02/18/2006,04/10/2002 Meningococcal MCV4P 09/04/2013 Pneumococcal polysaccharide PPSV23 01/03/2004 Tdap 06/05/2013,04/21/2002 Family History Medical History Relation Comments Cancer Father 2 Relation Status Comments Father 1 Alive Father 2 Social History Tobacco Use Types Packs/Day Years Used Date Smoking Tobacco: Heavy Smoker Smokeless Tobacco: Never Alcohol Use Standard Drinks/Week Comments No 0 (1 standard drink = 0.6 oz pur e alcohol) Education Answer Date Recorded Are you interested in more education? Not on carl e 08/03/2022 Are you concerned about learning? Not on file 08/03/2022 No 08/03/2022 No 08/03/2022 Digital Access Answer Date Recorded No 09/01/2022 No 09/01/2022 Reliable internet access at home? Not on file 09/01/2022 Device with a working camera? Not on file Sex and Gender Information Value Date Recorded Sex Assigned at Male 06/08/2017 11:31 AM EST Legal Sex Male 9:43 PM EDT Gender Identity Male 06/08/2017 11:31 AM EST Sexual Orientation Straight 06/08/2017 11 :31 AM EST Last Filed Vital Signs Vital Sign Reading Time Taken Comments Blood Pressure 139/86 05/19/2019 8:21 AM EST Pulse 73 05/19/2019 8:21 AM EST Temperature 36.7 C (98 F) 12/23/2017 7:54 PM EDT Respiratory Rate 16 06/08/2017 3:16 PM EST Oxygen Saturation 96% 05/19/2019 8:21 AM EST Inhaled Oxygen Concentration - - Weight 124.2 kg (273 lb 12.8 oz) 05/19/2019 8:21 AM EST Height 182 cm (5' 11.65 ) 05/19/2019 8:21 AM EST Body Mass Index 37.49 05/19/2019 8:21 AM EST Plan of Treatment Health Maintenance Due Date Last Done Comments LIPID PANEL 1963 DEPRESSION SCREENING 1975 SMOKING Hx and SMOKELESS TOBACCO SCREENING 11/08/1976 HEPATITIS C SCREENING 11/08/1981 HIV ONE-TIME SCREENING (18-65 YEARS) 11/08/1981 COLOGUARD 11/08/2008 COLONOSCOPY 11/08/2008 COLORECTAL CANCER SCREENING 11/08/2008 FIT TEST 11/08/2008 FOBT 11/08/2008 SIGMOIDOSCOPY 11/08/2008 VIRTUAL COLONOSCOPY 11/08/2008 ZOSTER VACCINES (1 of 2) 11/08/2013 PNEUMOCOCCAL VACCINES (50+ years) (2 of 2 - PCV) 04/11/2019 04/11/2018, 05/31/2017, 08/07/2011, Additional history exists Adult Td,Tdap Booster 06/05/2023 06/05/2013 , 08/07/2011, 04/21/2002, Additional history exists COVID-19 VACCINE (2 - 2023- season) 2023 08/03/2020 RSV VACCINE (1 - 1-dose 75+ series) 11/08/2038 HIB VACCINES Aged Out 09/04/2013, 09/04/2013 No lo nger eligible based on patient's age to complete this topic MENINGOCOCCAL VACCINES (ACWY) Aged Out 09/04/2013 No longer eligible based on patient's age to complete this topic HEPATITIS A VACCINES Aged Out No long er eligible based on patient's age to complete this topic MENINGOCOCCAL VACCINES (B) Aged Out N o longer eligible based on patient's age to complete this topic Medical Devices Not on file Insurance [place] & B [facility] [place] [facility] & B [place] [facility] & [facility] & [facility] PART A & B [facility] MEDICARE PART A & B Care Teams Extension Service Agent Relationship Specialty Start Date End Date Montrell Aguilar MD [address] [place] [id number] PCP - General 04/11/17 Oral Hernández MD [address] [place] [id number] Historical LMR Provider 01/21/17 Additional Source Comments The information contained in this document represents components of the legal health record. It is not the complete legal health record.[facility]
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
--- OUTSIDE RECORDS SUMMARY | 2024-10-26 15:21 | XMS_ITS | Clinical Summary ---
Author Organization [facility] [address] [place] [address] [place] [phone] Phone Care Team Providers Care Manager Of Applications Development Name Role Phone Agnes Kemp MD Primary Care Provider [phone] Allergies Active Allergy Reactions Criticality Noted Date Comments Carisoprodol Other,Rash High 11/30/2005 Other Reaction(s): Rash/Dermatitis Pt reports his tongue felt fuzzy nd turned black (childhood) Penicillins 09/20/2018 As a child rash Medications acetaminophen-c affeine-pyrilam ine (MIDOL COMPLETE) 500-60-15 mg tablet tablet Take 1,000 mg by mouth. 4 Active fluticasone furoate-vilante roL (BREO ELLIPTA) 100-25 mcg/dose inhaler Inhale by mouth. 3 Active atorvastatin (LIPITOR) 20 mg tablet Take 1 tablet (20 mg total) by mouth. 2 Active clonazePAM (KlonoPIN) 1 mg tablet Take 1 tablet (1 mg total) by mouth. 4 Active brexpiprazole (Rexulti) 2 mg tablet Take 1 tablet (2 mg total) by mouth. 4 Active fluticasone propion-salmete roL (AIRDUO RESPICLICK) 113-14 mcg/actuation aerosol powdr breath activated inhaler INHALE 1 PUFF INTO THE LUNGS TWICE DAILY 1 Active fluticasone propionate (FLONASE) 50 mcg/actuation nasal spray Administer 2 sprays into affected nostril(s). 9 Active fluticasone propion-salmete roL (AIRDUO DIGIHALER) 113 mcg-14 mcg/actuation aero powdr breath act w/sensor inhaler Inhale 1 puff by mouth. Active lamoTRIgine (LaMICtal) 100 mg tablet Take 2 tablets (200 mg total) by mouth. 3 Active ibuprofen (ADVIL,MOTRIN) 600 mg tablet Take 1 tablet (600 mg total) by mouth every 6 hours as needed. 9 Active hydrOXYzine HCL (ATARAX) 25 mg tablet Take 1 tablet (25 mg total) by mouth 3 (three) times a day if needed. Active methocarbamoL (ROBAXIN) 500 mg tablet Take 1 tablet (500 mg total) by mouth. 1 Active QUEtiapine (SEROquel) 100 mg tablet Take 1 tablet (100 mg total) by mouth 2 (two) times a day. Active polyethylene glycol-electrol ytes (Nulytely Lemon-Yuhaaviatam) 420 gram solution Take 240 mL by mouth. 3 Active Active Problems Problem Noted Date Diagnosed Date Knee pain 01/08/2024 Requires assistance with activities of daily camila ing (ADL) 01/08/2024 Overview (01/08/2024): Initial Oswestry Disability Index: 62% crippled and [place] Back Pain Disability Scale: 60 on 12/24/2013. 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 thy 01/08/2024 Muscle pain 01/08/2024 Normocytic normochromic anemia 01/08/2024 Obesity with body mass index 30 or greater 01/07 Posttraumatic stress disorder 01/08/2024 Sacroiliac joint pain 01/08/2024 Spasm 01/08/2024 TBI (traumatic brain injury) ([facility] V24, [facility] V28) 01/08/2024 Tobacco dependence syndrome 01/08/2024 Anxiety 09/10/2023 Mild intermittent asthma without complication Cough with hemoptysis 12/09/2020 H/O splenectomy 12/09/2020 Leukocytosis 12/09/2020 Idiopathic thrombocytopenic purpura (ITP) ([facility] [place]24, [facility] V28) 12/09/2020 Chronic left-sided low back pain without sciatic a 08/07/2019 Lung nodule 09/25/2018 Constipation due to opioid therapy 08/17/2015 Postoperative pain 10/27/2013 Presence of unspecified artificial knee joint Multiple fracture 03/06/2011 Panic disorder without agoraphobia 03/14/2006 Calculus of kidney 02/25/2006 Other chest pain 02/25/2006 Allergic rhinitis 11/30/2005 Asthma 11/30/2005 Gastroesophageal reflux disease 11/30/2005 Pure hypercholesterolemia 11/30/2005 Tobacco use disorder 11/30/2005 Immunizations Name Administration Dates Next Due [id number] (Pentacel) 2mo to less than 5yo 09/04/2013 Influenza trivalent, with pr eservative (Fluzone; Afluria) 6mo and older 02/02/2022,04/19/2021,01/22/2019,04/11,05/31/2017,02/07/2016,01/12/2014 ,05/01/2012,03/10/2010,01/03/2009,01/07,02/18/2006,04/10/2002 Meningococcal, Unspecified 09/04/2013 Pneumococcal polysaccharide 23 valent (Pneumovax 23) 2yo and older 04/11/2018,05/31/2017,08/07/2011,01/02 Td, Unspecified 04/21/2002 Tdap Tetanus diptheria acell ular pertussis (Boostrix; Adacel) 7yo and older 06/05/2013,08/07/2011,04/21/2002 Surgical History Surgery Date Site/Laterality Comments OTHER SURGICAL HISTORY 12/11 PROCEDURE: [place] TRANSVESICAL URETROLITHOTOMY TOTAL KNEE ARTHROPLASTY 2012 PROCEDURE: [place] ARTHRP KNE CONDYLE&PLATU MEDIAL&LAT COMPARTMENTS; COMMENT: right ESOPHAGOGASTRODUODENOSCOPY 08/01/15 [facility] PROCEDURE: HI ESOPHAGOGASTRODUODENOSCOPY TRANSORAL DIAGNOSTIC; COMMENT: normal; no Walker's COLONOSCOPY W/ BIOPSIES 08/01/15 [facility] PROCEDURE: HI COLONOSCOPY W/BIOPSY SINGLE/MULTIPLE; COMMENT: small adenoma; poor bowel prep; repeat in 1 year OTHER SURGICAL HISTORY 10/24/16 [facility] PROCEDURE: COLONOSCOPY/REMOVE LESION; COMMENT: 5mm polyp removed but not submitted; hemorrhoids. Repeat under propofol at [facility] in 5 yrs Medical History Medical History Date Comments Esophageal reflux DX:Esophageal reflux; COMMENT: 1994 x's2 Depressive disorder, not els ewhere classified DX:Depressive disorder, not elsewhere classified; COMMENT: TYLENOL OD Pure hypercholesterolemia DX:Pur e hypercholesterolemia Unspecified asthma(493.90) DX:Un specified asthma(493.90) Allergic rhinitis, cause unspecified DX:Allergic rhinitis, cause unspecified Tobacco use disorder DX:Tobacco use disorder Calculus of kidney DX:Calculus o f kidney Convulsions (CMS/HCC V24, CMS/HCC V28) DX:Convulsions; COMMENT: 1994 X 2, 1 IN 2001 Other chest pain DX:Other chest pain 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 03/14/2006 DX:Psychosexual dysfunctio n with inhibited sexual excitement; COMMENT: LOW TEST 182 07/24/04 Panic disorder without agoraphobia 03/14/2006 DX:Panic disorder without agoraphobia; COMMENT: ligia at [facility] Dr brianna stafford at [facility] Obesity, unspecified 03/14/2006 DX:Obesity, unspecified S/P total knee replacement 09/24/2012 DX:S/ P total knee replacement Family History Medical History Relation Name Comments Other cancer Father non-hodgkins ly mphoma Diabetes Maternal Grandfather Lung cancer Mother CABG Paternal Grandfather Heart attack Paternal Grandfather Heart failure Paternal Grandfather Relation Name Status Comments Brother Alive 4 brothers, hea lthy Father Alive Nonhodgkins Maternal Grandfather (Age 30s) D M Maternal Grandmother (Age 80s) d rank and smoked-UTERINE [place] Mother Alive Lung cnacer Paternal Grandfather (Age 93) [place] GB, fell out of bed, [place], CHF Paternal Grandmother Alive healthy Sister Alive 2 sisters, heal thy Son Alive 1 son, age 21 [place] , healthy Social History Tobacco Use Types Packs/Day Years Used Date Smoking Tobacco: Every Day Cigarettes 2 46 Started: 11/08/1978 Smokeless Tobacco: Never Alcohol Use Standard Drinks/Week Comments No 0 (1 standard drink = 0.6 oz pur e alcohol) Sex and Gender Information Value Date Recorded Sex Assigned at Not on file Legal Sex Male 7:09 AM EST Gender Identity Not on file Sexual Orientation Not on file Obstetrics History Last Filed Vital Signs Vital Sign Reading Time Taken Comments Blood Pressure 138/78 09/10/2023 9:00 AM EDT Pulse 80 09/10/2023 9:00 AM EDT Temperature - - Respiratory Rate - - Oxygen Saturation - - Inhaled Oxygen Concentration - - Weight 98.4 kg (217 lb) 09/10/2023 9:00 AM EDT Height 182.9 cm (6') 09/10/2023 9:00 AM EDT Body Mass Index 29.43 09/10/2023 9:00 AM EDT Plan of Treatment Health Maintenance Due Date Last Done Comments Meningococcal B Vaccine (1 of 5 - Increased Risk) 11/08/1973 IPV Vaccines (2 of 3 - Adult catch-up series) 10/02/2013 09/04/2013 Meningococcal ACWY Vaccine (2 - Risk 2-dose series) 10/30/2013 09/04/2013 Zoster Vaccines (1 of 2) 11/08/2013 Pneumococcal Vaccine: 50+ Years (3 of 3 - PCV) 04/11/2019 04/11/2018, 05/31/2017, 08/07/2011, Additional history exists Colorectal Cancer Screening: Colonoscopy 03/17/2022 HIV Screening 03/17/2022 Medicare Annual Wellness Visit 03/17/2022 Social Influencers of Health Screening 03/17/2022 DTaP,Tdap,and Td Vaccines (6 - Td or Tdap) 09/05/2023 09/04/2013, 06/05/2013, 08/07/2011, Additional history exists RSV Immunization Adult Patients (1 - Risk 60-74 years 1-dose series) 2023 COVID-19 Vaccine ( season) 2023 04/19/2021, 08/30/2020, 08/03/2020 Depression Screening 04/08/2024 Influenza Vaccine (#1) 2024 2, 04/19/2021, 01/22/2019, Additional history exists Cholesterol Screening (Lipid Panel) 09/01/2025 09/01/2020 Hepatitis C Screening Addressed 09/24/2012 Overri dden with the intention of not completing the topic HIB Vaccines Completed 09/04/2013 HPV Vaccines Aged Out No longer eligi ble based on patient's age to complete this topic Hepatitis A Vaccines Aged Out No long er eligible based on patient's age to complete this topic Hepatitis B Vaccines Aged Out No long er eligible based on patient's age to complete this topic MMR Vaccines Aged Out No longer eligi ble based on patient's age to complete this topic RSV Immunization Patients Under 20 months Aged Out No longer eligible based on patient's age to complete this topic Varicella Vaccines Aged Out No longer eligible based on patient's age to complete this topic Insurance MEDICAID - [place] [facility] MEDICARE ADVANTAGE on file Care Teams Manager Of Applications Development Relationship Specialty Start Date End Date Agnes Kemp MD [address] [place] [address] PCP - General 08/30/23
[2024-10-26 16:07] VITALS: BP 143/97; PULSE 62; RESP 18; TEMP 36.7; O2SAT 96
== END 2024-10-26 16:08 | disposition left against medical advice (07) ==
PROVIDERS: Nurse Practitioner Family; Emergency Provider Emergency Medicine
DX: R07.9 Chest pain, unspecified (principal); F12.90 Cannabis use, unspecified, uncomplicated; Z03.818 Encounter for observation for suspected exposure to other biological agents ruled out
CPT/HCPCS: 71046; 80053; 83690; 83735; 83880; 84484; 85025; 87637; 93005; 99283; 99284

== ENCOUNTER → 2024-10-26 13:19 | Outpatient (BNV) | payer MEDICARE, MEDICAID, SELFPAY | PROVIDERS: Visit Provider Radiology Diagnostic Radiology | DX: R52 Pain, unspecified (principal) | CPT/HCPCS: 71046 ==

== ENCOUNTER → 2024-10-26 13:19 | Outpatient (BNV) | payer MEDICARE, MEDICAID, SELFPAY | PROVIDERS: Emergency Provider Emergency Medicine; Visit Provider Internal Medicine Cardiovascular Disease | DX: R94.31 Abnormal electrocardiogram [ECG] [EKG] (principal); R07.9 Chest pain, unspecified | CPT/HCPCS: 93010 ==